=== PATIENT | male | born 1965 | race Caucasian/White ===

== ENCOUNTER 2022-07-07 12:39 | Inpatient (IN) | payer OTHER, BC ==
[~2022-07-07 12:39] MED LIST: Iopamidol-370 76% 500 ML 1 ML ONE
[2022-07-07] MEDS ORDERED: Fentanyl 100 MCG/2 ML VIAL ONE ×2 (12:51→13:33)
[2022-07-07] MEDS ORDERED: Boostrix 0.5 ML (Tdap) VIAL (>/=7 yrs of age) ONE (12:51)
[2022-07-07] MEDS ORDERED: Lidocaine 1% PF 5 ML VIAL ONE ×2 (13:04→13:05)
[2022-07-07 13:39] LABS: #Basophils 0.1 thou/uL (0.0-0.2); #Eosinphils 0.1 thou/uL (0.0-0.7); #Lymphocytes 4.3 thou/uL (1.20-3.40); #Monocytes 0.5 thou/uL (0.11-0.59); #Neutrophils 6.2 thou/uL (1.40-6.50); %Basophils 0.5 % (0.0-1.0); %Eosinophils 1.1 % (0.0-10.0); %Lymphocytes 38.4 % (21.0-51.0); %Monocytes 4.5 % (0.0-10.0); %Neutrophils 55.6 % (42.0-75.0); Mean Corpuscular HGB CONC 33.4 g/dL (32.0-36.0); Mean Corpuscular Hemoglobin 31.7 pg (27.0-31.0); Mean Corpuscular Volume 94.9 fL (78.0-98.0); Mean Platelet Volume 7.8 fL (7.4-10.4); Platelet Count 218 thou/uL (130-400); RBC Distribution Width 12.9 % (11.5-14.5); Red Blood Cell (RBC) Count 5.36 mill/uL (4.70-6.10); White Blood Cell (WBC) Count 11.2 thou/uL (4.8-10.8)
[2022-07-07 13:53] LABS: CK (CPK) 403 U/L (30-200); Lipase 23 U/L (8-78)
[2022-07-07] MEDS ORDERED: Morphine 4 MG/ML VIAL ONE (14:27)
[2022-07-07] MEDS ORDERED: Dextrose 5% in Water 1,000 ML IV PRN (15:00)
[2022-07-07] MEDS ORDERED: Promethazine HCl 25 MG/ML VIAL IM PRN ×2 (15:00→15:04)
[2022-07-07] MEDS ORDERED: Ondansetron PF 4 MG/2 ML Vial IVP PRN ×2 (15:00→15:04)
[2022-07-07] MEDS ORDERED: Dextrose 50% Abboject 50 ML SYRINGE SLOW IVP PRN (15:00)
[2022-07-07] MEDS ORDERED: TETANUS, DIPHTHERIA TOX,ADULT (TDVAX) 0.5 ML VIAL IM ONE (15:00)
[2022-07-07] MEDS ORDERED: diphenhydrAMINE 25 MG CAP PO PRN (15:04)
[2022-07-07] MEDS ORDERED: diphenhydrAMINE 50 MG/ML VIAL IM PRN (15:04)
[2022-07-07] MEDS ORDERED: Naloxone HCl 0.4 mg/ml Vial IV PRN (15:04)
[2022-07-07] MEDS ORDERED: HYDROmorphone 10 mg/100 ml CADD IVPB PRN (15:04)
[2022-07-07] MEDS ORDERED: diphenhydrAMINE 50 MG/ML VIAL IVP PRN (15:04)
[2022-07-07] MEDS ORDERED: Zolpidem Tartrate 5 MG TAB PO PRN (15:04)
[2022-07-07] MEDS ORDERED: Communication Order-Pharmacy FS PRN (15:15)
[2022-07-07 15:38] LABS: ALT (SGPT) 25 U/L (8-55); AST (SGOT) 33 U/L (5-34); Albumin 4.3 g/dL (3.5-5.0); Alkaline Phosphatase 71 U/L (40-110); Anion Gap 18 mmol/L (10-20); BUN (Urea Nitrogen) 17 mg/dL (8.4-25.7); Bilirubin, Total 0.8 mg/dL (0.2-1.2); Calc. Creatinine Clearance 0 mL/min (70-130); Calcium 9.6 mg/dL (7.8-10.44); Carbon Dioxide 19 mmol/L (22-29); Chloride 100 mmol/L (98-107); Estimated GFR 47; Globulin 2.8 g/dL (2.4-3.5); Glucose 280 mg/dL (70-105); Magnesium 1.9 mg/dL (1.6-2.6); Phosphorus 2.9 mg/dL (2.3-4.7); Potassium 4.3 mmol/L (3.5-5.1); Protein, Total 7.1 g/dL (6.0-8.3); Sodium 133 mmol/L (136-145)
[2022-07-07] MEDS ORDERED: HYDROmorphone/PF 10 MG in Sodium Chloride 0.9% 99 ML IVPB PRN (15:45)
[2022-07-07] MEDS ORDERED: Orphenadrine Citrate 60 MG/2 ML VIAL ONE (15:52)
[2022-07-07 16:55] VITALS: BMI 29.1
[2022-07-07] MEDS: Acetaminophen 500 MG TAB PO SCH ×2 (17:28→20:58)
[2022-07-07] MEDS: Sodium Chloride 0.9% 1,000 ML IV SCH (17:28)
[2022-07-07 18:38] LABS: Glucose 322 mg/dL (70-105)
[2022-07-07] MEDS: Gabapentin 300 MG CAP PO SCH (20:48)
[2022-07-07] MEDS ORDERED: Famotidine/PF 20 mg/2ml Vial SLOW IVP SCH (21:00)
[2022-07-07] MEDS: HumaLOG 300 UNITS/3 ML VIAL SC PRN (23:36)
[2022-07-08] MEDS: Sodium Chloride 0.9% 1,000 ML IV SCH ×2 (01:05→09:14)
[2022-07-08] MEDS: Acetaminophen 500 MG TAB PO SCH ×4 (03:58→20:27)
[2022-07-08 06:04] LABS: #Lymphocytes 1.3 thou/uL (1.20-3.40); #Monocytes 0.6 thou/uL (0.11-0.59); #Neutrophils 6.9 thou/uL (1.40-6.50); %Basophils 0.2 % (0.0-1.0); %Eosinophils 0.3 % (0.0-10.0); %Lymphocytes 14.2 % (21.0-51.0); %Monocytes 7.1 % (0.0-10.0); %Neutrophils 78.3 % (42.0-75.0); Hemoglobin 14.2 g/dL (14.0-18.0); Mean Corpuscular HGB CONC 33.4 g/dL (32.0-36.0); Mean Corpuscular Hemoglobin 31.9 pg (27.0-31.0); Mean Corpuscular Volume 95.5 fL (78.0-98.0); Mean Platelet Volume 7.6 fL (7.4-10.4); Platelet Count 144 thou/uL (130-400); Red Blood Cell (RBC) Count 4.44 mill/uL (4.70-6.10); White Blood Cell (WBC) Count 8.8 thou/uL (4.8-10.8)
[2022-07-08 06:05] LABS: INR-International Normal Ratio 1.1; PTT 31.4 sec (22.9-36.1); Prothrombin Time 14.2 sec (12.0-14.7)
[2022-07-08 06:26] LABS: ALT (SGPT) 25 U/L (8-55); AST (SGOT) 41 U/L (5-34); Albumin 3.8 g/dL (3.5-5.0); Alkaline Phosphatase 55 U/L (40-110); Anion Gap 13 mmol/L (10-20); BUN (Urea Nitrogen) 21 mg/dL (8.4-25.7); Bilirubin, Total 0.8 mg/dL (0.2-1.2); CK (CPK) 1407 U/L (30-200); Calc. Creatinine Clearance 73 mL/min (70-130); Calcium 8.4 mg/dL (7.8-10.44); Carbon Dioxide 22 mmol/L (22-29); Chloride 102 mmol/L (98-107); Estimated GFR 52; Globulin 2.4 g/dL (2.4-3.5); Glucose 259 mg/dL (70-105); Phosphorus 3.2 mg/dL (2.3-4.7); Potassium 4.7 mmol/L (3.5-5.1); Protein, Total 6.2 g/dL (6.0-8.3); Sodium 132 mmol/L (136-145)
[2022-07-08] MEDS: HumaLOG 300 UNITS/3 ML VIAL SC PRN ×3 (06:37→22:12)
[2022-07-08] MEDS ORDERED: Prevnar 13-Val Conj/PF 0.5 ML SYRINGE IM ONE (09:00)
[2022-07-08] MEDS ORDERED: FLU VACC QS2022-23(6MOS UP)/PF 60 MCG/0.5 ML SYRINGE IM ONE (09:00)
[2022-07-08] MEDS: Gabapentin 300 MG CAP PO SCH ×3 (09:12→20:26)
[2022-07-08] MEDS ORDERED: Sodium Chloride 0.9% 1,000 ML IV SCH (19:45)
[2022-07-08] MEDS: hydrALAZINE 20 MG/ML VIAL SLOW IVP PRN (20:41)
[2022-07-08] MEDS ORDERED: Simethicone Chewable 80 MG TAB PO PRN (22:21)
[2022-07-09] MEDS: Acetaminophen 500 MG TAB PO SCH ×4 (04:50→21:58)
[2022-07-09] MEDS: hydrALAZINE 20 MG/ML VIAL SLOW IVP PRN ×3 (04:55→20:38)
[2022-07-09 06:10] LABS: #Monocytes 0.6 thou/uL (0.11-0.59); #Neutrophils 7.4 thou/uL (1.40-6.50); %Basophils 0.2 % (0.0-1.0); %Eosinophils 0.3 % (0.0-10.0); %Monocytes 6.5 % (0.0-10.0); %Neutrophils 82.1 % (42.0-75.0); Hemoglobin 14.8 g/dL (14.0-18.0); Mean Corpuscular HGB CONC 32.7 g/dL (32.0-36.0); Mean Corpuscular Hemoglobin 31.4 pg (27.0-31.0); Mean Corpuscular Volume 96.2 fL (78.0-98.0); Mean Platelet Volume 7.5 fL (7.4-10.4); Platelet Count 117 thou/uL (130-400); Platelet Morphology Comment Appears Decreased; RBC Distribution Width 12.9 % (11.5-14.5); Red Blood Cell (RBC) Count 4.71 mill/uL (4.70-6.10)
[2022-07-09 06:37] LABS: Anion Gap 14 mmol/L (10-20); BUN (Urea Nitrogen) 17 mg/dL (8.4-25.7); CK (CPK) 1106 U/L (30-200); Calc. Creatinine Clearance 84 mL/min (70-130); Calcium 9.1 mg/dL (7.8-10.44); Carbon Dioxide 24 mmol/L (22-29); Chloride 99 mmol/L (98-107); Estimated GFR 62; Glucose 275 mg/dL (70-105); Phosphorus 2.1 mg/dL (2.3-4.7); Potassium 4.9 mmol/L (3.5-5.1); Sodium 132 mmol/L (136-145)
[2022-07-09] MEDS ORDERED: Cyclobenzaprine 10 MG TAB PO PRN (06:43)
[2022-07-09] MEDS ORDERED: traMADol HCl 50 MG TAB PO SCH (07:00)
[2022-07-09] MEDS: Polyethylene Glycol 3350 17 GM Packet PO SCH (08:30)
[2022-07-09] MEDS: Senokot S 8.6-50 MG TAB PO SCH ×2 (08:33→20:37)
[2022-07-09] MEDS: Gabapentin 300 MG CAP PO SCH ×2 (08:33→20:36)
[2022-07-09] MEDS: Atorvastatin Calcium 20 MG TAB PO SCH (08:35)
[2022-07-09] MEDS: Lisinopril 20 MG TAB PO SCH ×2 (08:35→20:37)
[2022-07-09] MEDS ORDERED: Lisinopril/Hydrochlorothiazide 20/25 mg Tablet PO SCH (09:00)
[2022-07-09] MEDS: Enoxaparin Sodium 40 MG/0.4 ML SYRINGE SC SCH (09:46)
[2022-07-09] MEDS: Bisacodyl 10 MG SUPP PR SCH (09:47)
[2022-07-09] MEDS: HumaLOG 300 UNITS/3 ML VIAL SC PRN ×2 (12:00→17:14)
[2022-07-09] MEDS: traMADol HCl 50 MG TAB PO SCH ×2 (12:04→17:09)
[2022-07-09] MEDS: Insulin Glargine 30 UNITS/0.3 ML VIAL SC SCH (21:39)
[2022-07-10] MEDS: traMADol HCl 50 MG TAB PO SCH ×4 (00:11→17:06)
[2022-07-10] MEDS: hydrALAZINE 20 MG/ML VIAL SLOW IVP PRN (04:51)
[2022-07-10] MEDS: Acetaminophen 500 MG TAB PO SCH ×4 (04:53→21:34)
[2022-07-10] MEDS: Bisacodyl 10 MG SUPP PR SCH (04:54)
[2022-07-10 05:35] LABS: #Lymphocytes 1.3 thou/uL (1.20-3.40); #Monocytes 0.7 thou/uL (0.11-0.59); #Neutrophils 7.8 thou/uL (1.40-6.50); %Basophils 0.1 % (0.0-1.0); %Eosinophils 0.4 % (0.0-10.0); %Monocytes 7.4 % (0.0-10.0); %Neutrophils 79.1 % (42.0-75.0); Hemoglobin 14.1 g/dL (14.0-18.0); Mean Corpuscular HGB CONC 32.4 g/dL (32.0-36.0); Mean Corpuscular Hemoglobin 31.3 pg (27.0-31.0); Mean Corpuscular Volume 96.6 fL (78.0-98.0); Mean Platelet Volume 7.1 fL (7.4-10.4); Platelet Count 122 thou/uL (130-400); Red Blood Cell (RBC) Count 4.51 mill/uL (4.70-6.10); White Blood Cell (WBC) Count 9.9 thou/uL (4.8-10.8)
[2022-07-10] MEDS: HumaLOG 300 UNITS/3 ML VIAL SC PRN ×3 (05:35→17:06)
[2022-07-10] MEDS: Enoxaparin Sodium 40 MG/0.4 ML SYRINGE SC SCH (07:50)
[2022-07-10] MEDS: Atorvastatin Calcium 20 MG TAB PO SCH (07:50)
[2022-07-10] MEDS: Gabapentin 300 MG CAP PO SCH ×2 (07:50→21:33)
[2022-07-10] MEDS: Lisinopril 20 MG TAB PO SCH ×2 (07:50→21:34)
[2022-07-10] MEDS: Polyethylene Glycol 3350 17 GM Packet PO SCH (07:51)
[2022-07-10] MEDS: Senokot S 8.6-50 MG TAB PO SCH ×2 (07:51→21:34)
[2022-07-10] MEDS: Insulin Glargine 30 UNITS/0.3 ML VIAL SC SCH (21:34)
[2022-07-11] MEDS: traMADol HCl 50 MG TAB PO SCH ×4 (00:01→17:32)
[2022-07-11] MEDS: Acetaminophen 500 MG TAB PO SCH ×4 (05:09→21:14)
[2022-07-11] MEDS: HumaLOG 300 UNITS/3 ML VIAL SC PRN (05:14)
[2022-07-11] MEDS: Atorvastatin Calcium 20 MG TAB PO SCH (08:33)
[2022-07-11] MEDS: Senokot S 8.6-50 MG TAB PO SCH ×2 (08:33→21:15)
[2022-07-11] MEDS: Lisinopril 20 MG TAB PO SCH ×2 (08:33→21:15)
[2022-07-11] MEDS: Gabapentin 300 MG CAP PO SCH ×2 (08:33→21:15)
[2022-07-11] MEDS: Enoxaparin Sodium 40 MG/0.4 ML SYRINGE SC SCH (08:34)
[2022-07-11] MEDS: Polyethylene Glycol 3350 17 GM Packet PO SCH (08:35)
[2022-07-11] MEDS: Bisacodyl 10 MG SUPP PR SCH (08:35)
[2022-07-11] MEDS: Insulin Glargine 30 UNITS/0.3 ML VIAL SC SCH (21:17)
[2022-07-12] MEDS: traMADol HCl 50 MG TAB PO SCH ×3 (00:10→11:38)
[2022-07-12] MEDS: Acetaminophen 500 MG TAB PO SCH ×2 (04:10→09:04)
[2022-07-12] MEDS: Gabapentin 300 MG CAP PO SCH (09:03)
[2022-07-12] MEDS: Senokot S 8.6-50 MG TAB PO SCH (09:03)
[2022-07-12] MEDS: Lisinopril 20 MG TAB PO SCH (09:03)
[2022-07-12] MEDS: Atorvastatin Calcium 20 MG TAB PO SCH (09:04)
[2022-07-12] MEDS: Enoxaparin Sodium 40 MG/0.4 ML SYRINGE SC SCH (09:06)
[2022-07-12] MEDS: Bisacodyl 10 MG SUPP PR SCH (09:18)
[2022-07-12] MEDS: Polyethylene Glycol 3350 17 GM Packet PO SCH (09:19)
[2022-07-15 10:58] VITALS: BP 155/91; TEMP 97.7
== END 2022-07-12 12:20 | disposition home or self-care (01) | DRG 964 ==
LOC: ERS 12:39 → SURG B 15:03
PROVIDERS: ADMIT Surgery; ATTEND Surgery
PROC: 0W9B30Z Drainage of Left Pleural Cavity with Drainage Device, Percutaneous Approach (ICD-10-PCS; principal; 2022-07-07)
DX: S27.2XXA Traumatic hemopneumothorax, initial encounter (principal); S22.42XA Multiple fractures of ribs, left side, initial encounter for closed fracture; S36.039A Unspecified laceration of spleen, initial encounter; E78.5 Hyperlipidemia, unspecified; I10 Essential (primary) hypertension; I25.2 Old myocardial infarction; Z95.5 Presence of coronary angioplasty implant and graft; V29.99XA Rider (driver) (passenger) of other motorcycle injured in unspecified traffic accident, initial encounter; Y92.89 Other specified places as the place of occurrence of the external cause
CPT/HCPCS: 32551; 36415; 36416; 70450; 70498; 71045; 71260; 72125; 72170; 74018; 74177; 80048; 82550; 82947; 83690; 83735; 84100; 84484; 85025; 85610; 85730; 90471; 90715; 93005; 94760; 96361; 96372; 96374; 96375; 97139; J0360; J1170; J1650; J1815; J2270; J2360; J2405; J3010; J3490; J7050; Q9967; S0028